=== PATIENT | male | born 1935 | race Hispanic/Latino ===

== ENCOUNTER → 2021-07-15 | Outpatient (CLI) | payer MEDICARE | LOC: CT 12:25 | PROVIDERS: ATTEND Internal Medicine Gastroenterology | DX: R10.30 Lower abdominal pain, unspecified (principal) | CPT/HCPCS: 74176 ==

== ENCOUNTER → 2021-08-19 | Day surgery (SDC) | payer MEDICARE ==
[~2021-08-19] MED LIST: AMLODIPINE BESY10 MG PO; FAMOTIDINE20 MG PO; FENTANYL CITRATE/PF 100MCG/2 ML INJ ONE; FINASTERIDE5 MG PO; FLOMAX0.4 MG PO; LIDOCAINE HCL 2% LOCAL INJ 5 ML SDV VIAL INJ ONE; LISINOPRIL-HCT1 EAC1 PO; METFORMIN HCL500 MG PO; METOCLOPRAMIDE HCL 10 MG/2ML VIAL ONE; MIDAZOLAM HCL 2 MG/2 ML VIAL ONE; PROPOFOL IV EMULSION 10 MG/ML 20 ML VIAL ONE
[2021-08-19 12:28] LABS: BASOPHILS # (AUTO) 0.1 (0.0-0.1); BASOPHILS % 1.1 % (0.0-1.0); EOSINOPHILS # (AUTO) 0.1 (0.0-0.4); EOSINOPHILS % 2.2 % (0.0-6.0); HEMATOCRIT 35.7 % (38.2-49.6); HEMOGLOBIN 11.5 g/dL (14.0-18.0); LYMPHOCYTES # (AUTO) 1.2 (1.0-3.2); LYMPHOCYTES % 26.1 % (18.0-39.1); MEAN CORPUSCULAR HEMOGLOBIN 27.4 pg (28-32); MEAN CORPUSCULAR HGB CONC 32.2 g/dL (31-35); MEAN CORPUSCULAR VOLUME 85.2 fL (81-99); MONOCYTES # (AUTO) 0.3 (0.2-0.8); MONOCYTES % 7.3 % (4.4-11.3); NEUTROPHILS # (AUTO) 2.9 (2.1-6.9); NEUTROPHILS % 63.1 % (38.7-80.0); PLATELET COUNT 237 x10e3/uL (140-360); RED BLOOD COUNT 4.19 x10e6/uL (4.3-5.7); RED CELL DISTRIBUTION WIDTH 15.1 % (11.7-14.4)
[2021-08-19 15:50] VITALS: BP 132/74
== END | disposition home or self-care (01) ==
LOC: OR 11:24
PROVIDERS: ATTEND Internal Medicine Gastroenterology
DX: K29.70 Gastritis, unspecified, without bleeding (principal); K20.90 Esophagitis, unspecified without bleeding; K21.9 Gastro-esophageal reflux disease without esophagitis; K44.9 Diaphragmatic hernia without obstruction or gangrene; E11.9 Type 2 diabetes mellitus without complications; I10 Essential (primary) hypertension; I25.10 Atherosclerotic heart disease of native coronary artery without angina pectoris; I45.10 Unspecified right bundle-branch block; J45.909 Unspecified asthma, uncomplicated; I25.2 Old myocardial infarction; Z88.6 Allergy status to analgesic agent; Z88.8 Allergy status to other drugs, medicaments and biological substances; Z91.041 Radiographic dye allergy status; Z91.013 Allergy to seafood; Z20.822 Contact with and (suspected) exposure to COVID-19; Z79.84 Long term (current) use of oral hypoglycemic drugs; Z79.899 Other long term (current) drug therapy; Z98.61 Coronary angioplasty status
CPT/HCPCS: 36415; 43239; 82948; 85025; 93005; C9113; J2001; J2250; J2704; J2765; J3010; U0002

== ENCOUNTER 2021-11-05 12:51 | Inpatient (IN) | payer MEDICARE ==
[~2021-11-05] VITALS: Ht 172.7 cm; Wt 87.5 kg
[~2021-11-05 12:51] MED LIST changes: -FENTANYL CITRATE/PF 100MCG/2 ML INJ ONE; -LIDOCAINE HCL 2% LOCAL INJ 5 ML SDV VIAL INJ ONE; -METOCLOPRAMIDE HCL 10 MG/2ML VIAL ONE; -MIDAZOLAM HCL 2 MG/2 ML VIAL ONE; -PROPOFOL IV EMULSION 10 MG/ML 20 ML VIAL ONE
[2021-11-05 13:27] LABS: BASOPHILS % 0.8 % (0.0-1.0); EOSINOPHILS # (AUTO) 0.1 (0.0-0.4); EOSINOPHILS % 2.9 % (0.0-6.0); HEMATOCRIT 28.1 % (38.2-49.6); HEMOGLOBIN 8.8 g/dL (14.0-18.0); LYMPHOCYTES % 24.7 % (18.0-39.1); MEAN CORPUSCULAR HEMOGLOBIN 27.8 pg (28-32); MEAN CORPUSCULAR HGB CONC 31.3 g/dL (31-35); MEAN CORPUSCULAR VOLUME 88.6 fL (81-99); MONOCYTES # (AUTO) 0.3 (0.2-0.8); MONOCYTES % 8.8 % (4.4-11.3); NEUTROPHILS # (AUTO) 2.4 (2.1-6.9); NEUTROPHILS % 62.8 % (38.7-80.0); PLATELET COUNT 270 x10e3/uL (140-360); RED BLOOD COUNT 3.17 x10e6/uL (4.3-5.7); RED CELL DISTRIBUTION WIDTH 15.3 % (11.7-14.4)
[2021-11-05 13:41] LABS: INR 0.95; PROTHROMBIN TIME 13.6 seconds (11.9-14.5)
[2021-11-05 13:53] LABS: ALBUMIN 3.8 g/dL (3.5-5.0); ALBUMIN/GLOBULIN RATIO 1.1 (0.8-2.0); ANION GAP 13.1 mmol/L (8-16); CALCIUM 8.6 mg/dL (8.4-10.2); CREATININE, SERUM 1.31 mg/dL (0.72-1.25); POTASSIUM 4.1 mmol/L (3.5-5.1)
[2021-11-05] MEDS ORDERED: LIDOCAINE 4% PATCH TP PRN (19:45)
[2021-11-05] MEDS ORDERED: SODIUM CHLORIDE 0.9% 1000ML 1,000 ML IV SCH (19:45)
[2021-11-05] MEDS ORDERED: ALBUTEROL/IPRATROPIUM 3 ML NEB NEB PRN (19:45)
[2021-11-05] MEDS ORDERED: DOCUSATE SODIUM 100 MG CAP PO PRN (19:45)
[2021-11-05] MEDS ORDERED: DEXTROSE 50% SYRINGE 50 ML IV PRN (19:45)
[2021-11-05] MEDS ORDERED: BENZONATATE 100 MG CAP PO PRN (19:45)
[2021-11-05] MEDS ORDERED: HYDRALAZINE HCL 20 MG/ML VIAL IV PRN (19:45)
[2021-11-05] MEDS ORDERED: MELATONIN 5 MG TABLET PO PRN (19:45)
[2021-11-05] MEDS ORDERED: SIMETHICONE 80 MG CHEW PO PRN (19:45)
[2021-11-05] MEDS ORDERED: ONDANSETRON HCL INJ 2MG/ML 2ML 2 MG/ML VIAL IV PRN (19:45)
[2021-11-05] MEDS ORDERED: HYDROCODONE/APAP 5MG-325MG TAB PO PRN (19:45)
[2021-11-05] MEDS ORDERED: ACETAMINOPHEN 325 MG TAB PO PRN (19:45)
[2021-11-05] MEDS ORDERED: POTASSIUM CHLORIDE 20 MEQ TAB CR PO PRN (19:45)
[2021-11-05 20:00] LABS: % IRON SATURATION 6 % (15-50); IRON 22 ug/dL (65-175); TOTAL IRON BINDING CAPACITY 389 ug/dL (261-478); TRANSFERRIN 278 mg/dL (174-364)
[2021-11-05 20:30] VITALS: BP 152/69
[2021-11-05 21:00] VITALS: BP 152/69
[2021-11-05] MEDS: HYDROCODONE/APAP 5MG-325MG TAB PO PRN (22:55)
[2021-11-05] MEDS: DEXTROSE 5%/0.9% SOD CHL 1,000 ML IV SCH (22:55)
[2021-11-05 23:51] VITALS: BP 125/81
[2021-11-06] VITALS (9 sets, daily range): BP systolic 125–168; BP diastolic 57–86
[2021-11-06] MEDS ORDERED: BISACODYL 5 MG TAB EC PO ONE ×2 (00:15→00:45)
[2021-11-06] MEDS ORDERED: IRON SUCROSE 100 MG in SODIUM CHLORIDE 0.9% 100 ML 100 ML IV SCH (03:00)
[2021-11-06] MEDS ORDERED: CYANOCOBALAMIN INJ 1,000 MCG/ML VIAL IM ONE (03:00)
[2021-11-06] MEDS ORDERED: CITRATE OF MAGNESIA 300ML BOTTLE PO ONE ×2 (05:00→07:00)
[2021-11-06 05:43] LABS: BASOPHILS % 0.7 % (0.0-1.0); EOSINOPHILS # (AUTO) 0.2 (0.0-0.4); EOSINOPHILS % 3.9 % (0.0-6.0); HEMATOCRIT 30.5 % (38.2-49.6); HEMOGLOBIN 9.3 g/dL (14.0-18.0); LYMPHOCYTES # (AUTO) 1.4 (1.0-3.2); LYMPHOCYTES % 31.5 % (18.0-39.1); MEAN CORPUSCULAR HGB CONC 30.5 g/dL (31-35); MEAN CORPUSCULAR VOLUME 88.7 fL (81-99); MONOCYTES # (AUTO) 0.4 (0.2-0.8); NEUTROPHILS # (AUTO) 2.4 (2.1-6.9); NEUTROPHILS % 53.7 % (38.7-80.0); PLATELET COUNT 284 x10e3/uL (140-360); RED BLOOD COUNT 3.44 x10e6/uL (4.3-5.7)
[2021-11-06 06:04] LABS: ANION GAP 14.9 mmol/L (8-16); CALCIUM 9.1 mg/dL (8.4-10.2); CREATININE, SERUM 0.97 mg/dL (0.72-1.25); POTASSIUM 3.9 mmol/L (3.5-5.1)
[2021-11-06] MEDS: PANTOPRAZOLE SOD 40 MG TABEC PO SCH (07:30)
[2021-11-06] MEDS: HYDROCORTISONE ACETATE 25 MG/SUPP.RECT SUPP RC SCH ×2 (09:00→16:03)
[2021-11-06] MEDS: IRON SUCROSE 100 MG in SODIUM CHLORIDE 0.9% 100 ML 100 ML IV SCH (09:12)
[2021-11-06] MEDS: DEXTROSE 5%/0.9% SOD CHL 1,000 ML IV SCH ×2 (09:13→22:41)
[2021-11-06] MEDS: HYDROCODONE/APAP 5MG-325MG TAB PO PRN ×2 (09:17→15:17)
[2021-11-07] MEDS ORDERED: BISACODYL 5 MG TAB EC PO ONE ×2 (00:45→01:15)
[2021-11-07] MEDS: HYDROCODONE/APAP 5MG-325MG TAB PO PRN (00:51)
[2021-11-07 04:00] VITALS: BP 171/92
[2021-11-07] MEDS ORDERED: CITRATE OF MAGNESIA 300ML BOTTLE PO ONE ×2 (05:00→07:00)
[2021-11-07] MEDS: PANTOPRAZOLE SOD 40 MG TABEC PO SCH (07:30)
[2021-11-07 08:00] VITALS: BP 146/65
[2021-11-07 08:23] VITALS: BP 146/65
[2021-11-07] MEDS: IRON SUCROSE 100 MG in SODIUM CHLORIDE 0.9% 100 ML 100 ML IV SCH (09:24)
[2021-11-07] MEDS: CYANOCOBALAMIN INJ 1,000 MCG/ML VIAL IM SCH (09:24)
[2021-11-07] MEDS: DEXTROSE 5%/0.9% SOD CHL 1,000 ML IV SCH (09:29)
[2021-11-07] MEDS: HYDROCORTISONE ACETATE 25 MG/SUPP.RECT SUPP RC SCH ×2 (09:30→17:00)
[2021-11-07 11:55] VITALS: BP 142/95
[2021-11-07 12:15] LABS: BASOPHILS % 0.3 % (0.0-1.0); EOSINOPHILS # (AUTO) 0.1 (0.0-0.4); EOSINOPHILS % 2.6 % (0.0-6.0); HEMATOCRIT 29.6 % (38.2-49.6); HEMOGLOBIN 8.9 g/dL (14.0-18.0); LYMPHOCYTES # (AUTO) 1.1 (1.0-3.2); LYMPHOCYTES % 30.5 % (18.0-39.1); MEAN CORPUSCULAR HEMOGLOBIN 27.1 pg (28-32); MEAN CORPUSCULAR HGB CONC 30.1 g/dL (31-35); MONOCYTES # (AUTO) 0.3 (0.2-0.8); NEUTROPHILS % 58.3 % (38.7-80.0); PLATELET COUNT 262 x10e3/uL (140-360); RED BLOOD COUNT 3.29 x10e6/uL (4.3-5.7); RED CELL DISTRIBUTION WIDTH 14.7 % (11.7-14.4)
[2021-11-07 12:30] LABS: ANION GAP 12.1 mmol/L (8-16); CREATININE, SERUM 0.84 mg/dL (0.72-1.25); POTASSIUM 4.1 mmol/L (3.5-5.1)
[2021-11-07] MEDS ORDERED: LIDOCAINE HCL 2% LOCAL INJ 5 ML SDV VIAL INJ ONE (15:50)
[2021-11-07] MEDS ORDERED: PROPOFOL IV EMULSION 10 MG/ML 20 ML VIAL ONE (15:50)
[2021-11-07] MEDS ORDERED: EPINEPHRINE HCL 1:1000 1ML 1 MG/ML AMP ONE (15:50)
[2021-11-07 16:36] VITALS: BP 176/61
[2021-11-07 20:00] VITALS: BP 159/70
[2021-11-08] VITALS (7 sets, daily range): BP systolic 141–161; BP diastolic 58–81
[2021-11-08] MEDS: PANTOPRAZOLE SOD 40 MG TABEC PO SCH (08:00)
[2021-11-08] MEDS: CYANOCOBALAMIN INJ 1,000 MCG/ML VIAL IM SCH (09:55)
[2021-11-08] MEDS: DEXTROSE 5%/0.9% SOD CHL 1,000 ML IV SCH (09:55)
[2021-11-08] MEDS: IRON SUCROSE 100 MG in SODIUM CHLORIDE 0.9% 100 ML 100 ML IV SCH (09:55)
[2021-11-08] MEDS: HYDROCORTISONE ACETATE 25 MG/SUPP.RECT SUPP RC SCH (09:55)
== END 2021-11-08 17:06 | disposition home or self-care (01) | DRG 377 ==
LOC: ER 13:00 → ERHOLD 14:13 → MED/SURG2 21:10 → OBSVTOIN 11-07 08:25
PROVIDERS: ADMIT Internal Medicine; ATTEND Internal Medicine
PROC: 0D5K8ZZ Destruction of Ascending Colon, Via Natural or Artificial Opening Endoscopic (ICD-10-PCS; principal; 2021-11-08)
PROC: 0W3P8ZZ Control Bleeding in Gastrointestinal Tract, Via Natural or Artificial Opening Endoscopic (ICD-10-PCS; 2021-11-08)
PROC: 3E0H8GC Introduction of Other Therapeutic Substance into Lower GI, Via Natural or Artificial Opening Endoscopic (ICD-10-PCS; 2021-11-08)
DX: K55.21 Angiodysplasia of colon with hemorrhage (principal); U07.1 COVID-19; K57.90 Diverticulosis of intestine, part unspecified, without perforation or abscess without bleeding; I10 Essential (primary) hypertension; D50.0 Iron deficiency anemia secondary to blood loss (chronic); E11.9 Type 2 diabetes mellitus without complications; K21.9 Gastro-esophageal reflux disease without esophagitis; E78.5 Hyperlipidemia, unspecified; Z79.899 Other long term (current) drug therapy; Z88.8 Allergy status to other drugs, medicaments and biological substances; Z91.013 Allergy to seafood
CPT/HCPCS: 36415; 45378; 45388; 74176; 80048; 80053; 82607; 82728; 82746; 82948; 83540; 84466; 85025; 85610; 93005; 94799; 96361; 99284; G0378; J0171; J0360; J1756; J2001; J3420; J7042; U0002